=== PATIENT | male | born 1995 | race Asian ===

== ENCOUNTER 2017-05-02 18:36 | Emergency (ER) | payer OTHER ==
--- NOTE | 2017-05-02 19:57 | ED Physician Documentation ---
PD HPI MHE - Stated complaint Stated Complaint: SI - Chief complaint Chief Complaint: MHE - History obtained from History obtained from: Patient - History of Present Illness Primary symptom: Other (He has been depressed for the last year and vague suicidal ideation without plan for the last month. 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 He has contracted for safety. Departure - Departure Disposition: 01 Home, Self Care Clinical Impression: Depression Qualifiers: Depression Type: major depressive disorder Major depression recurrence: single episode Active/Remission status: currently active Major depression episode severity: moderate Qualified Code(s): F32.1 - Major depressive disorder, single episode, moderate Condition: Good Record reviewed to determine appropriate education?: Yes Instructions: ED Depression Comments: FOLLOWUP WITH [facility] TOM[facility] TO SEEK PSYCHIATRIC CARE. RETURN IF WORSE.
[2017-05-02 20:05] VITALS: BP 121/74
== END 2017-05-02 20:20 | disposition home or self-care (01) ==
LOC: ED 18:36
DX: F32.1 Major depressive disorder, single episode, moderate (principal)
CPT/HCPCS: 99283